=== PATIENT | female | born 1960 | race Caucasian/White ===

== ENCOUNTER 2023-05-07 16:33 | Observation (INO) | payer MEDICARE, MEDICAID ==
[~2023-05-07] VITALS: Ht 155 cm; Wt 69.0 kg
[2023-05-07 17:15] VITALS: BP 133/83
[2023-05-07] MEDS ORDERED: ONDANSETRON INJECTION 4 MG/2 ML (SDV) IVP PRN (17:15)
[2023-05-07] MEDS ORDERED: PATIENT MAY USE OWN MEDS, ALL PO SCH (17:15)
[2023-05-07] MEDS ORDERED: LACTATED RINGERS 1,000 ML 1,000 ML IV SCH (17:15)
--- NOTE | 2023-05-07 17:19 | History & Physical ---
HPI History of Present Illness: Started feeling sick 5 days ago and had chills for 3 days, couldn't get warmed up. Checked her temp and never had a fever. Chills got better after 3 days but now feeling weak and tired and lightheaded. Poor appetite since beginning, vomiting first 3 days. Maybe diarrhea, she took Mylanta. Denies cough, congestion, sore throat, chest pain, shortness of breath. At clinic flu and COVID swabs were negative. Labs showed creatinine 1.6 from normal baseline. Date seen by provider: May 07, 2023 Time Seen by Provider: 17:17 Attending Physician [place] PCP Admitting Physician: Keysha Matias MD Attending Physician: Keysha Matias MD Consult Date of Admission May 07, 2023 at 17:02 Home Medications Home Medications Reviewed patient Home Medication Reconciliation performed by pharmacy medication reconciliations hospital technician and/or nursing. Patients Allergies have been reviewed. Allergies Coded Allergies: Penicillins (Verified Allergy, Intermediate, RASH, 05/13/11) [id number] Hx Patient Social History Living Status: Lives with 2 grandkids Smoking Status: Former Smoker (quit 1994) Alcohol Use?: Yes (beer twice per year) Past Medical History PMHx: COPD Diabetes Fibromyalgia HTN SurgHx: C section x 2 Left foot surgery after toothpick stuck in foot Family Medical History Significant Family History: Heart Disease (both parents), Cancer (mother breast cancer) Review of Systems ([facility]) Constitutional: dizziness Gastrointestinal: No abdominal pain Genitourinary: No dysuria Musculoskeletal: joint pain (chronic) Skin: No rash Psychiatric/Neurological: Denies Anxiety, Denies Depressed Physical Exam-([facility]) Physical Exam Vital Signs Capillary Refill : General Appearance: WD/WN, no apparent distress Respiratory: lungs clear, normal breath sounds Cardiovascular: regular rate, rhythm, no murmur Gastrointestinal: normal bowel sounds, non tender, soft Extremities: no pedal edema Neurologic/Psychiatric: alert, normal mood/affect Skin: normal color, warm/dry Assessment/Plan Assessment/Plan Admission Status: Observation (1) Acute kidney injury Status: Acute Assessment & Plan: IVF bolus, continuous IVF overnight. (2) Vomiting Status: Acute Assessment & Plan: Suspect related to viral illness, IVF and antiemetics. (3) COPD (chronic obstructive pulmonary disease) Status: Chronic Assessment & Plan: No acute issues (4) Diabetes mellitus, type 2 Status: Chronic Assessment & Plan: Hold home orals, monitor glucose Qualifiers: Qualified Codes: E11.65 - Type 2 diabetes mellitus with hyperglycemia (5) Hypertension Status: Chronic Assessment & Plan: Resume home BP meds as needed (6) DVT prophylaxis Status: Acute Assessment & Plan: Enoxaparin KEYSHA MATIAS MD May 07, 2023 17:19
[2023-05-07 18:11] LABS: BASOPHILS # (AUTO) 0.1 10^3/uL (0.0-0.1); BASOPHILS % (AUTO) 0 % (0-10); EOSINOPHILS # (AUTO) 0.1 10^3/uL (0.0-0.3); EOSINOPHILS % (AUTO) 1 % (0-10); HEMATOCRIT 35 % (35-52); HEMOGLOBIN 11.7 g/dL (11.5-16.0); LYMPHOCYTES # (AUTO) 0.8 10^3/uL (1.0-4.0); LYMPHOCYTES % (AUTO) 7 % (12-44); MEAN CORPUSCULAR HEMOGLOBIN 28 pg (25-34); MEAN CORPUSCULAR HGB CONC 33 g/dL (32-36); MEAN CORPUSCULAR VOLUME 83 fL (80-99); MEAN PLATELET VOLUME 12.2 fL (9.0-12.2); MONOCYTES # (AUTO) 0.8 10^3/uL (0.0-1.0); MONOCYTES % (AUTO) 7 % (0-12); NEUTROPHILS # (AUTO) 9.5 10^3/uL (1.8-7.8); NEUTROPHILS % (AUTO) 84 % (42-75); PLATELET COUNT 161 10^3/uL (130-400); WHITE BLOOD COUNT 11.2 10^3/uL (4.3-11.0)
[2023-05-07 18:23] LABS: ALBUMIN 2.9 GM/DL (3.2-4.5)
[2023-05-07 18:25] LABS: CALCIUM 8.7 MG/DL (8.5-10.1)
[2023-05-07 18:26] LABS: TOTAL PROTEIN 7.4 GM/DL (6.4-8.2)
[2023-05-07 18:28] LABS: BILIRUBIN,TOTAL 0.6 MG/DL (0.1-1.0)
[2023-05-07 18:30] LABS: CREATININE SERUM 1.75 MG/DL (0.60-1.30)
[2023-05-07 18:41] LABS: LYMPHOCYTES % (MANUAL) 4 %; MONOCYTES % (MANUAL) 5 %; MYELOCYTES % 1 %; NEUTROPHILS % (MANUAL) 90 %
[2023-05-07 18:42] LABS: MICROCYTOSIS SLIGHT
[2023-05-07] MEDS: ENOXAPARIN 40 MG/0.4 ML SYRINGE SC SCH (18:45)
[2023-05-07] MEDS ORDERED: FLU HIGH DOSE (65+ YOA) 240 MCG/0.7 ML 2023-24 (FLUZONE) IM ONE (19:00)
[2023-05-07] MEDS: NS IV 1000 ML 1,000 ML IV SCH (19:16)
[2023-05-07 19:46] LABS: COLOR,URINE YELLOW
[2023-05-07 19:47] LABS: BACTERIA,URINE LARGE /HPF; BILIRUBIN,URINE NEGATIVE (NEGATIVE); CLARITY,URINE CLEAR; GLUCOSE, URINE (UA) TRACE (NEGATIVE); KETONES,URINE NEGATIVE (NEGATIVE); LEUKOCYTE ESTERASE ,URINE 1+ (NEGATIVE); NITRITE,URINE NEGATIVE (NEGATIVE); PH,URINE 5.5 (5-9); PROTEIN,URINE 3+ (NEGATIVE); SQUAMOUS EPITHELIAL CELL,UR 0-2 /HPF; WBC,URINE >100 /HPF
[2023-05-07 20:38] LABS: CALCIUM 8.7 MG/DL (8.5-10.1)
[2023-05-07 20:42] LABS: CREATININE SERUM 1.61 MG/DL (0.60-1.30)
[2023-05-07] MEDS: ACETAMINOPHEN 500 MG TABLET PO PRN (20:43)
[2023-05-07 20:52] VITALS: BP 139/83
[2023-05-07 23:15] VITALS: BP 110/56
[2023-05-08] MEDS: NS IV 1000 ML 1,000 ML IV SCH ×4 (02:34→21:31)
[2023-05-08 03:28] VITALS: BP 136/61
[2023-05-08 07:16] LABS: HEMATOCRIT 35 % (35-52); HEMOGLOBIN 11.6 g/dL (11.5-16.0); MEAN CORPUSCULAR HEMOGLOBIN 28 pg (25-34); MEAN CORPUSCULAR HGB CONC 33 g/dL (32-36); MEAN CORPUSCULAR VOLUME 83 fL (80-99); MEAN PLATELET VOLUME 12.2 fL (9.0-12.2); PLATELET COUNT 162 10^3/uL (130-400); WHITE BLOOD COUNT 10.6 10^3/uL (4.3-11.0)
[2023-05-08 07:28] LABS: CALCIUM 8.2 MG/DL (8.5-10.1)
[2023-05-08 07:32] LABS: CREATININE SERUM 1.23 MG/DL (0.60-1.30)
[2023-05-08 07:42] VITALS: BP 144/71
[2023-05-08] MEDS: ACETAMINOPHEN 500 MG TABLET PO PRN ×2 (07:56→16:20)
[2023-05-08] MEDS: cefTRIAXone IV/IM 1,000 MG in NS (IVPB) 50 ML 50 ML IV SCH (08:52)
[2023-05-08] MEDS ORDERED: ALBU2.5V4 INH (10:40)
[2023-05-08] MEDS ORDERED: RT-ALBUINH INH (10:40)
[2023-05-08] MEDS ORDERED: CALC-687 PO (10:40)
[2023-05-08] MEDS ORDERED: LORA10TA7 PO (10:40)
[2023-05-08] MEDS ORDERED: CANA100T PO (10:40)
[2023-05-08] MEDS ORDERED: ASPI-999 PO (10:40)
[2023-05-08] MEDS ORDERED: MULT-1136 PO (10:41)
[2023-05-08] MEDS ORDERED: SENN-234 PO (10:41)
[2023-05-08 11:14] VITALS: BP 138/70
[2023-05-08 11:16] LABS: POTASSIUM 4.2 MMOL/L (3.6-5.0)
[2023-05-08 11:17] LABS: CALCIUM 7.8 MG/DL (8.5-10.1)
[2023-05-08 11:22] LABS: CREATININE SERUM 1.37 MG/DL (0.60-1.30)
--- NOTE | 2023-05-08 13:22 | Progress Note ---
Subjective Subjective/Events-last exam Pt states she is feeling much better, is very hungry and wants to try regular food. Objective Exam Last Set of Vital Signs Vital Signs Date Time Temp Pulse Resp B/P (MAP) Pulse Ox O2 Delivery O2 Flow Rate FiO2 05/08/23 11:14 36.6 79 16 138/70 (92) 95 Room Air Capillary Refill : I&O Intake and Output 05/08/23 00:00 Intake Total 1440 ml Output Total 150 ml Balance 1290 ml Intake Oral 440 ml IV Total 1000 ml Output Urine Total 150 ml Daily Weight Change No General: Alert, No Acute Distress Lungs: Clear to Auscultation, Normal Air Movement Heart: Regular Rate, No Murmurs Abdomen: Normal Bowel Sounds, Soft Extremities: No Edema Neuro: Normal Speech Results/Procedures Lab Laboratory Tests 05/07/23 17:29: Glucometer 284H 05/07/23 17:57: White Blood Count 11.2H, Red Blood Count 4.26, Hemoglobin 11.7, Hematocrit 35, Mean Corpuscular Volume 83, Mean Corpuscular Hemoglobin 28, Mean Corpuscular Hemoglobin Concent 33, Red Cell Distribution Width 12.8, Platelet Count 161, Mean Platelet Volume 12.2, Immature Granulocyte % (Auto) 1, Neutrophils (%) (Auto) 84H, Lymphocytes (%) (Auto) 7L, Monocytes (%) (Auto) 7, Eosinophils (%) (Auto) 1, Basophils (%) (Auto) 0, Neutrophils # (Auto) 9.5H, Lymphocytes # (Auto) 0.8L, Monocytes # (Auto) 0.8, Eosinophils # (Auto) 0.1, Basophils # (Auto) 0.1, Immature Granulocyte # (Auto) 0.1, Neutrophils % (Manual) 90, Lymphocytes % (Manual) 4, Monocytes % (Manual) 5, Myelocytes % 1, Band Neutrophils , Microcytosis SLIGHT, Sodium Level 125*L, Potassium Level 4.0, Chloride Level 89L, Carbon Dioxide Level 25, Anion Gap 11, Blood Urea Nitrogen 42H, Creatinine 1.75H, Estimat Glomerular Filtration Rate 32, BUN/Creatinine Ratio 24, Glucose Level 281H, Calcium Level 8.7, Corrected Calcium 9.6, Total Bilirubin 0.6, Aspartate Amino Transf (AST/SGOT) 19, Alanine Aminotransferase (ALT/SGPT) 16, Alkaline Phosphatase 130, Total Protein 7.4, Albumin 2.9L, Thyroid Stimulating Hormone (TSH) 3.71 05/07/23 19:26: Urine Color YELLOW, Urine Clarity CLEAR, Urine pH 5.5, Urine Specific [place] 1.015L, Urine Protein 3+H, Urine Glucose (UA) TRACEH, Urine Ketones NEGATIVE, Urine Nitrite NEGATIVE, Urine Bilirubin NEGATIVE, Urine Urobilinogen 0.2, Urine Leukocyte Esterase 1+H, Urine RBC (Auto) 3+H, Urine RBC 10-25H, Urine WBC >100H, Urine Squamous Epithelial Cells 0-2, Urine Crystals NONE, Urine Bacteria LARGEH, Urine Casts NONE, Urine Mucus NEGATIVE, Urine Culture Indicated YES, Urine Creatinine 95 05/07/23 20:20: Sodium Level 127L, Potassium Level 4.0, Chloride Level 92L, Carbon Dioxide Level 25, Anion Gap 10, Blood Urea Nitrogen 39H, Creatinine 1.61H, Estimat Glomerular Filtration Rate 35, BUN/Creatinine Ratio 24, Glucose Level 307H, Calcium Level 8.7 05/07/23 20:51: Glucometer 304H 05/08/23 05:54: Glucometer 185H 05/08/23 07:08: White Blood Count 10.6, Red Blood Count 4.22, Hemoglobin 11.6, Hematocrit 35, Mean Corpuscular Volume 83, Mean Corpuscular Hemoglobin 28, Mean Corpuscular Hemoglobin Concent 33, Red Cell Distribution Width 12.7, Platelet Count 162, Mean Platelet Volume 12.2, Sodium Level 130L, Potassium Level 4.0, Chloride Level 97L, Carbon Dioxide Level 23, Anion Gap 10, Blood Urea Nitrogen 32H, Creatinine 1.23, Estimat Glomerular Filtration Rate 49, BUN/Creatinine Ratio 26, Glucose Level 198H, Calcium Level 8.2L 05/08/23 10:56: Sodium Level 128L, Potassium Level 4.2, Chloride Level 96L, Carbon Dioxide Level 21, Anion Gap 11, Blood Urea Nitrogen 30H, Creatinine 1.37H, Estimat Glomerular Filtration Rate 43, BUN/Creatinine Ratio 22, Glucose Level 311H, Calcium Level 7.8L 05/08/23 11:01: Glucometer 289H Microbiology 05/07/23 Urine Culture - Preliminary, Resulted Escherichia coli Assessment/Plan Assessment/Plan (1) Hyponatremia Status: Acute Assessment & Plan: Suspect hypovolemic hyponatremia, urine Na and Cl, cr and osmolality pending. Monitor for overcorrection with IV fluid replacement. Na up to 130 this am, stopped IVF, but Na trended down, will resume and recheck in a few hours. (2) Acute kidney injury Status: Acute Assessment & Plan: IVF bolus given on admit and continuous IVF, with improvement in creatinine this morning. However, downtrended on repeat, resume IVF and repeat labs in 4 hours. (3) Vomiting Status: Resolved Assessment & Plan: Suspect related to viral illness, IVF and antiemetics. Resolved, advance to diabetic diet. (4) COPD (chronic obstructive pulmonary disease) Status: Chronic Assessment & Plan: No acute issues (5) Diabetes mellitus, type 2 Status: Chronic Assessment & Plan: Hold home orals, monitor glucose, insulin as needed. Qualifiers: Qualified Codes: E11.65 - Type 2 diabetes mellitus with hyperglycemia (6) Hypertension Status: Chronic Assessment & Plan: Resume home BP meds as needed (7) DVT prophylaxis Status: Acute Assessment & Plan: Enoxaparin KEYSHA WALLS MD May 08, 2023 13:22
[2023-05-08] MEDS ORDERED: CRAN400C PO (14:12)
[2023-05-08] MEDS ORDERED: MAG355OR17 PO (14:12)
[2023-05-08] MEDS ORDERED: MAG-141 PO (14:12)
[2023-05-08 16:12] VITALS: BP 164/65
[2023-05-08 16:55] LABS: POTASSIUM 3.8 MMOL/L (3.6-5.0)
[2023-05-08 16:57] LABS: CALCIUM 8.3 MG/DL (8.5-10.1)
[2023-05-08 17:01] LABS: CREATININE SERUM 1.3 MG/DL (0.60-1.30)
[2023-05-08] MEDS ORDERED: SIMETHICONE 80 MG CHEWABLE TABLET ONE (17:25)
[2023-05-08] MEDS: SIMETHICONE 80 MG CHEWABLE TABLET PO PRN (17:27)
[2023-05-08] MEDS: ENOXAPARIN 40 MG/0.4 ML SYRINGE SC SCH (17:27)
[2023-05-08 19:06] VITALS: BP 111/62
[2023-05-08 22:02] LABS: POTASSIUM 4.1 MMOL/L (3.6-5.0)
[2023-05-08 22:03] LABS: CALCIUM 7.8 MG/DL (8.5-10.1)
[2023-05-08] MEDS: inSUlin ASPART 1 UNIT/0.01 ML (PER UNIT) SC SCH (22:04)
[2023-05-08 22:07] LABS: CREATININE SERUM 1.23 MG/DL (0.60-1.30)
[2023-05-08 23:06] VITALS: BP 127/67
[2023-05-09 03:34] VITALS: BP 171/80
[2023-05-09] MEDS: SIMETHICONE 80 MG CHEWABLE TABLET PO PRN (03:39)
[2023-05-09] MEDS ORDERED: RT-ALBUTEROL SULF 2.5 MG/3 ML PRE-MIX VIAL INH PRN (03:45)
[2023-05-09] MEDS: ACETAMINOPHEN 500 MG TABLET PO PRN (04:13)
[2023-05-09 04:56] VITALS: BP 110/67
[2023-05-09] MEDS: NS IV 1000 ML 1,000 ML IV SCH (04:57)
[2023-05-09 05:53] LABS: HEMATOCRIT 32 % (35-52); HEMOGLOBIN 10.3 g/dL (11.5-16.0); MEAN CORPUSCULAR HEMOGLOBIN 28 pg (25-34); MEAN CORPUSCULAR HGB CONC 32 g/dL (32-36); MEAN CORPUSCULAR VOLUME 86 fL (80-99); MEAN PLATELET VOLUME 11.9 fL (9.0-12.2); PLATELET COUNT 145 10^3/uL (130-400); WHITE BLOOD COUNT 10.4 10^3/uL (4.3-11.0)
[2023-05-09] MEDS ORDERED: RT-ALBUTEROL SULF 2.5 MG/3 ML PRE-MIX VIAL INH SCH (06:00)
[2023-05-09 06:02] LABS: POTASSIUM 3.6 MMOL/L (3.6-5.0)
[2023-05-09 06:04] LABS: CALCIUM 7.5 MG/DL (8.5-10.1)
[2023-05-09 06:08] LABS: CREATININE SERUM 1.12 MG/DL (0.60-1.30)
[2023-05-09] MEDS: inSUlin ASPART 1 UNIT/0.01 ML (PER UNIT) SC SCH ×2 (06:40→12:21)
[2023-05-09 08:04] VITALS: BP 100/57
[2023-05-09] MEDS: cefTRIAXone IV/IM 1,000 MG in NS (IVPB) 50 ML 50 ML IV SCH (08:13)
--- NOTE | 2023-05-09 09:22 | Progress Note ---
Objective Exam Last Set of Vital Signs Vital Signs Date Time Temp Pulse Resp B/P (MAP) Pulse Ox O2 Delivery O2 Flow Rate FiO2 05/09/23 08:04 35.6 89 18 100/57 (71) 95 Room Air Capillary Refill : I&O Intake and Output 05/09/23 00:00 Intake Total 4475 ml Output Total 800 ml Balance 3675 ml Intake Oral 1800 ml IV Total 2675 ml Output Urine Total 800 ml # Voids 8 # Bowel Movements 1 Results/Procedures Lab Laboratory Tests 05/08/23 10:56: Sodium Level 128L, Potassium Level 4.2, Chloride Level 96L, Carbon Dioxide Level 21, Anion Gap 11, Blood Urea Nitrogen 30H, Creatinine 1.37H, Estimat Glomerular Filtration Rate 43, BUN/Creatinine Ratio 22, Glucose Level 311H, Calcium Level 7.8L 05/08/23 11:01: Glucometer 289H 05/08/23 16:22: Glucometer 260H 05/08/23 16:35: Sodium Level 130L, Potassium Level 3.8, Chloride Level 95L, Carbon Dioxide Level 25, Anion Gap 10, Blood Urea Nitrogen 27H, Creatinine 1.30, Estimat Glomerular Filtration Rate 46, BUN/Creatinine Ratio 21, Glucose Level 262H, Calcium Level 8.3L 05/08/23 21:05: Glucometer 268H 05/08/23 21:16: Sodium Level 129L, Potassium Level 4.1, Chloride Level 99, Carbon Dioxide Level 23, Anion Gap 7, Blood Urea Nitrogen 28H, Creatinine 1.23, Estimat Glomerular Filtration Rate 49, BUN/Creatinine Ratio 23, Glucose Level 313H, Calcium Level 7.8L 05/09/23 05:45: Sodium Level 131L, Potassium Level 3.6, Chloride Level 102, Carbon Dioxide Level 20L, Anion Gap 9, Blood Urea Nitrogen 24H, Creatinine 1.12, Estimat Glomerular Filtration Rate 55, BUN/Creatinine Ratio 21, Glucose Level 243H, Calcium Level 7.5L, White Blood Count 10.4, Red Blood Count 3.72L, Hemoglobin 10.3L, Hematocrit 32L, Mean Corpuscular Volume 86, Mean Corpuscular Hemoglobin 28, Mean Corpuscular Hemoglobin Concent 32, Red Cell Distribution Width 13.0, Platelet Count 145, Mean Platelet Volume 11.9 Microbiology 05/07/23 Urine Culture - Preliminary, Resulted Escherichia coli Assessment/Plan Assessment/Plan (1) Hyponatremia Status: Acute Assessment & Plan: Suspect hypovolemic hyponatremia, urine Na and Cl, cr and osmolality pending. Monitor for overcorrection with IV fluid replacement. Na up to 130 this am, stopped IVF, but Na trended down, will resume and recheck in a few hours. (2) Acute kidney injury Status: Acute Assessment & Plan: IVF bolus given on admit and continuous IVF, with improvement in creatinine this morning. However, downtrended on repeat, resume IVF and repeat labs in 4 hours. (3) Vomiting Status: Resolved Assessment & Plan: Suspect related to viral illness, IVF and antiemetics. Resolved, advance to diabetic diet. (4) COPD (chronic obstructive pulmonary disease) Status: Chronic Assessment & Plan: No acute issues (5) Diabetes mellitus, type 2 Status: Chronic Assessment & Plan: Hold home orals, monitor glucose, insulin as needed. Qualifiers: Qualified Codes: E11.65 - Type 2 diabetes mellitus with hyperglycemia (6) Hypertension Status: Chronic Assessment & Plan: Resume home BP meds as needed (7) DVT prophylaxis Status: Acute Assessment & Plan: Enoxaparin JEWEL RODRÍGUEZ MD, RESIDENT May 09, 2023 09:22
[2023-05-09] MEDS ORDERED: ONDA4TAB11 SL (11:21)
[2023-05-09] MEDS ORDERED: CEFD300C3 PO (11:21)
[2023-05-09 11:34] VITALS: BP 131/72
--- NOTE | 2023-05-09 11:43 | Discharge Summary ---
JEWEL RODRÍGUEZ MD, RESIDENT 05/09/23 1143: Discharge Summary Hospital Course Problems/Diagnosis: (1) Hyponatremia Status: Acute Assessment & Plan: Suspect hypovolemic hyponatremia, consistent with urine work-up. Monitor for overcorrection with IV fluid replacement. Na up to 131 this am planning on to fluids. Will likely need further work-up in the outpatient. Ordered BMP for Friday (2) Acute kidney injury Status: Resolved Resolution Date/Time: 05/09/23 @ 11:39 Assessment & Plan: IVF bolus given on admit and continuous IVF, with improvement in creatinine this morning. Resolved this morning. (3) Vomiting Status: Resolved Resolution Date/Time: 05/08/23 @ 13:18 Assessment & Plan: Suspect related to viral illness, IVF and antiemetics. Resolved, advance to diabetic diet. (4) COPD (chronic obstructive pulmonary disease) Status: Chronic Assessment & Plan: No acute issues (5) Diabetes mellitus, type 2 Status: Chronic Assessment & Plan: Hold home orals, monitor glucose, insulin as needed. Consider discontinuing Invokana in the outpatient and switching to insulin as patient had a UTI and does note that she gets nausea with oral medications Qualifiers: Qualified Codes: E11.65 - Type 2 diabetes mellitus with hyperglycemia (6) Hypertension Status: Chronic Assessment & Plan: Resume home BP meds as needed (7) DVT prophylaxis Status: Acute Assessment & Plan: Enoxaparin Hospital Course Date of Admission: May 07, 2023 at 17:02 Admission Diagnosis : Family Physician/Provider: [place] Date of Discharge: 05/09/23 Discharge Diagnosis: Hyponatremia, UTI, RIYA Hospital Course: Patient is a 63-year-old female with a past medical history of diabetes, COPD who presented with RIYA. She has been having chills for the past 3 days as well as weakness and lightheadedness. She did note poor appetite with vomiting. In the ED, she was noted to have an RIYA with creatinine of 1.6 as well as a UTI which was likely contributing to her RIYA. She was also hyponatremic to 125. Her hyponatremia was secondary to hypovolemia and did improve to 131 with fluids however we were expecting more of a response with fluid resuscitation and thus feel that she would benefit from further hyponatremia work-up in the outpatient. We treated her UTI with IV ceftriaxone and will discharge her with cefdinir to complete treatment. Note, urine culture did grow E. coli however susceptibilities are pending. Will have patient repeat her BMP on Friday to monitor sodium. Recommend close follow-up with PCP to work-up hyponatremia. We will stop Invokana on discharge given patient's UTI however recommend discussing other treatment options as patient notes that she has nausea and vomiting with oral medications. RIYA resolved prior to discharge. Patient was otherwise stable. Labs and Pending Lab Test: Laboratory Tests 05/08/23 16:22: Glucometer 260H 05/08/23 16:35: Sodium Level 130L, Potassium Level 3.8, Chloride Level 95L, Carbon Dioxide Level 25, Anion Gap 10, Blood Urea Nitrogen 27H, Creatinine 1.30, Estimat Glomerular Filtration Rate 46, BUN/Creatinine Ratio 21, Glucose Level 262H, Calcium Level 8.3L 05/08/23 21:05: Glucometer 268H 05/08/23 21:16: Sodium Level 129L, Potassium Level 4.1, Chloride Level 99, Carbon Dioxide Level 23, Anion Gap 7, Blood Urea Nitrogen 28H, Creatinine 1.23, Estimat Glomerular Filtration Rate 49, BUN/Creatinine Ratio 23, Glucose Level 313H, Calcium Level 7.8L 05/09/23 05:45: White Blood Count 10.4, Red Blood Count 3.72L, Hemoglobin 10.3L, Hematocrit 32L, Mean Corpuscular Volume 86, Mean Corpuscular Hemoglobin 28, Mean Corpuscular Hemoglobin Concent 32, Red Cell Distribution Width 13.0, Platelet Count 145, Mean Platelet Volume 11.9, Sodium Level 131L, Potassium Level 3.6, Chloride Level 102, Carbon Dioxide Level 20L, Anion Gap 9, Blood Urea Nitrogen 24H, Creatinine 1.12, Estimat Glomerular Filtration Rate 55, BUN/Creatinine Ratio 21, Glucose Level 243H, Calcium Level 7.5L 05/09/23 11:31: Glucometer 255H Microbiology 05/07/23 Urine Culture - Preliminary, Resulted Escherichia coli Home Meds Active Ondansetron Odt (Ondansetron) 4 Mg Tab.rapdis 4 Mg SL Q4H PRN Cefdinir 300 Mg Capsule 300 Mg PO BID 4 Days Reported Cranberry 400 Mg Capsule 400 Mg PO DAILY Mylanta Maximum Strength Liq (Mag Hydrox/Aluminum Hyd/Simeth) 400 Mg-400 Mg-40 Mg/5 Ml Oral.susp 30 Ml PO Q6H PRN Multivitamin 1 Each Tablet 1 Each PO DAILY Loratadine 10 Mg Tablet 10 Mg PO DAILY Invokana (Canagliflozin) 100 Mg Tablet 100 Mg PO HS LAST FILLED 11-26-2022 #90/90 DAY SUPPLY Aspirin 81 Mg Tab.chew 81 Mg PO DAILY Ventolin Hfa (Albuterol Sulfate) 1 Puff Puff 2 Puff INH Q4H PRN Albuterol Sulfate 2.5 Mg/3 Ml (0.083 %) Vial.neb 2.5 Mg INH Q4H PRN Assessment/Pt DC Instructions Please see electronic discharge instructions given to patient. Discharge Diet: No Restrictions Activity as Tolerated: Yes Discharge Physical Examination Allergies: Coded Allergies: Penicillins (Verified Allergy, Intermediate, RASH, 05/13/11) General Appearance: No Apparent Distress HEENT: Normal ENT Inspection Respiratory: Chest Non Tender, Lungs Clear, Normal Breath Sounds, No Accessory Muscle Use, No Respiratory Distress Cardiovascular: Regular Rate, Rhythm, No Edema, No Murmur Gastrointestinal: Normal Bowel Sounds, Non Tender, Soft Extremity: No Pedal Edema Skin: Normal Color, Warm/Dry Neurologic/Psychiatric: Alert, Oriented x3 KEYSHA WALLS MD 05/09/23 6018: Discharge Summary Discharge Physical Examination Allergies: Coded Allergies: Penicillins (Verified Allergy, Intermediate, RASH, 05/13/11) Supervisory-Addendum Brief Supervisory Addendum I personally performed the webber portions of the visit, discussed case with resident and concur with resident documentation of history, physical exam, assessment and treatment plan unless otherwise noted. JEWEL RODRÍGUEZ MD, RESIDENT May 09, 2023 11:43 KEYSHA WALLS MD May 09, 2023 16:58
== END 2023-05-09 11:20 | disposition home or self-care (01) ==
LOC: 4TH 17:02 → UNDOADMOB 17:02 → 4TH 17:18 → UNDODISOB 05-09 11:20
PROVIDERS: ADMIT Family Medicine; ATTEND Family Medicine
DX: E87.1 Hypo-osmolality and hyponatremia (principal); N39.0 Urinary tract infection, site not specified; N17.9 Acute kidney failure, unspecified; R11.10 Vomiting, unspecified; J44.9 Chronic obstructive pulmonary disease, unspecified; I10 Essential (primary) hypertension; E11.65 Type 2 diabetes mellitus with hyperglycemia; Z87.891 Personal history of nicotine dependence; Z79.84 Long term (current) use of oral hypoglycemic drugs; Z79.899 Other long term (current) drug therapy
CPT/HCPCS: 36415; 80048; 80053; 81000; 82436; 82570; 82947; 84300; 84443; 85007; 85027; 87077; 87088; 87186; 96360; 96361; 96366; 96372; 96375; 96376; G0378